=== PATIENT | male | born 1955 | race African-American/Black ===

== ENCOUNTER 2017-11-06 06:18 | Emergency (ER) | payer OTHER ==
[~2017-11-06] VITALS: Ht 167.6 cm; Wt 65.0 kg
[~2017-11-06 06:18] MED LIST: ANTIBIOTIC; ASPIRIN E.C.81 M1 PO; ATARAX,VISTARIL50 MG PO; AVENTYL,PAMELOR10 M1 PO; DECADRON1 MG PO; ENDOCET 5-3251 EACH PO; FENTANYL1 EAC4; FENTANYL1 EAC4 TD; FENTANYL1 EAC5; FENTANYL1 EAC5 TD; FLEXERIL10 MG PO; Flexeril PO; GABAPENTIN300 MG PO; HYDROCODON-ACE1 EAC7 PO; KEFLEX500 MG PO; KENALOG,ARISTOC80 GM TP; LISINOPRIL5 MG PO; LYRICA50 MG PO; MS CONTIN,ORAMO15 M1 PO; OXYCODONE-APAP1 EACH PO; PAMELOR10 MG PO; PERCOCET 5/31 TABLET PO; PREDNISONE20 MG PO; ROXICODONE5 MG PO; VITAMIN D5000 INTUN PO; WESTCORT 0.2% C15 GM TP; ZESTRIL,PRINIVIL5 MG PO
[2017-11-06 10:53] LABS: BASOPHIL (%) 0.1 % (0-1); EOSINOPHIL (%) 3.5 % (0-5); EOSINOPHIL COUNT 0.3 K/uL (0-0.3); HEMATOCRIT 33.2 % (38.0-50.0); HEMOGLOBIN 11.7 G/DL (12.5-16.6); IMMATURE GRANULOCYTE (%) 0.4 % (0.0-0.7); LYMPHOCYTE (%) 18.8 % (15-42); LYMPHOCYTE COUNT 1.3 K/uL (1.0-2.8); MCH 32.3 PG (29.0-34.0); MCHC 35.2 G/DL (30.0-36.0); MCV 91.7 FL (86-99); MONOCYTE (%) 8.6 % (3-12); MONOCYTE COUNT 0.6 K/uL (0-0.8); NEUTROPHIL (%) 68.6 % (45-76); NEUTROPHIL COUNT 4.9 K/uL (1.8-6.4); NRBC (%) 0.3 /100 WBC (0-0); PLATELET COUNT 213 K/uL (156-360); RBC DIS.WIDTH-CV 13.6 % (11.8-14.6); RBC DIS.WIDTH-SD 46.3 % (39-53); RED BLOOD COUNT 3.62 M/uL (4.00-5.50); WHITE BLOOD COUNT 7.1 K/uL (4.1-10.2)
[2017-11-06 11:01] LABS: CHLORIDE 107 mEq/L (99-109); POTASSIUM 4.2 mEq/L (3.7-5.4); SODIUM 141 mEq/L (136-147)
[2017-11-06 11:02] LABS: GLUCOSE 99 mg/dL (70-99)
[2017-11-06 11:06] LABS: CREATININE 0.9 mg/dL (0.6-1.3); GFR ESTIMATE (CALCULATED) > 59 mL/min/ (58.99-99999)
[2017-11-06 11:07] LABS: UREA NITROGEN (BUN) 17 mg/dL (9-23)
[2017-11-06 12:44] VITALS: BP 123/74
== END 2017-11-06 12:45 | disposition home or self-care (01) ==
LOC: EME 06:18
PROVIDERS: Emergency Medicine
DX: J02.9 Acute pharyngitis, unspecified (principal); J05.10 Acute epiglottitis without obstruction; Z98.1 Arthrodesis status; I10 Essential (primary) hypertension; J45.909 Unspecified asthma, uncomplicated; E11.9 Type 2 diabetes mellitus without complications; F17.200 Nicotine dependence, unspecified, uncomplicated; Z86.73 Personal history of transient ischemic attack (TIA), and cerebral infarction without residual deficits; Z90.49 Acquired absence of other specified parts of digestive tract; Z88.2 Allergy status to sulfonamides
CPT/HCPCS: 70360; 70490; 80048; 83605; 85025; 87040; 99281; 99284; J1100

== ENCOUNTER 2017-11-16 07:38 | Day surgery (SDC) | payer OTHER ==
[~2017-11-16] VITALS: Ht 165.1 cm; Wt 65.8 kg
[~2017-11-16 07:38] MED LIST changes: +ADULT ASPIRIN81 MG PO; +HYDROCORTISONE30 G2 TP; +ROXIFOL-D TA500 UNIT PO; +ULTRAM50 MG PO; -VITAMIN D5000 INTUN PO
== END 2017-11-16 09:45 | disposition home or self-care (01) ==
LOC: PAIN 07:38 → SDC 08:15 → PAIN 09:45
PROC: 3E0T3TZ Introduction of Destructive Agent into Peripheral Nerves and Plexi, Percutaneous Approach (ICD-10-PCS; principal; 2017-11-16)
DX: G90.521 Complex regional pain syndrome I of right lower limb (principal); M47.816 Spondylosis without myelopathy or radiculopathy, lumbar region; M79.1 Myalgia; M54.2 Cervicalgia; M96.1 Postlaminectomy syndrome, not elsewhere classified; I10 Essential (primary) hypertension; A69.20 Lyme disease, unspecified; Z79.82 Long term (current) use of aspirin; F17.200 Nicotine dependence, unspecified, uncomplicated
CPT/HCPCS: 93005; J1030; J2250; J3010